=== PATIENT | female | born 1975 | race Two or more races ===

== ENCOUNTER 2018-09-25 12:18 | Outpatient (CLI) | payer OTHER | END 2018-09-25 23:59 | disposition home or self-care (01) | LOC: RAD 12:18 | PROVIDERS: ATTEND Podiatrist Foot & Ankle Surgery | DX: M20.11 Hallux valgus (acquired), right foot (principal); M77.31 Calcaneal spur, right foot; M77.32 Calcaneal spur, left foot; I87.8 Other specified disorders of veins | CPT/HCPCS: 73630-TC ==

== ENCOUNTER 2018-09-26 08:57 | Outpatient (CLI) | payer OTHER | END 2018-09-26 23:59 | disposition home or self-care (01) | LOC: WOU 08:57 | PROVIDERS: ATTEND Podiatrist Foot & Ankle Surgery | DX: M72.2 Plantar fascial fibromatosis (principal); M77.52 Other enthesopathy of left foot and ankle; M77.51 Other enthesopathy of right foot and ankle; L84 Corns and callosities; R60.0 Localized edema; Z91.013 Allergy to seafood | CPT/HCPCS: 99213; Z7610; G0463 ==